=== PATIENT | female | born 1960 | race Caucasian/White ===

== ENCOUNTER 2018-09-15 20:52 | Emergency (ER) | payer BC ==
[2018-09-15 21:17] VITALS: BP 149/85
--- NOTE | 2018-09-15 21:18 | UC ---
Laceration HPI - HPI Summary HPI Summary: 57 female who sustained a laceration to her left index finger this morning. The gauze on it most of the day and then asked a friend if she needed stitches and he advised her to come here to have it evaluated. Last tetanus is unknown. - History Of Current Complaint Chief Complaint: UCWounds Stated Complaint: LEFT INDEX FINGER LACERATION Time Seen by Provider: 09/15/18 21:18 Hx Obtained From: Patient Laceration Location: Finger - Middle of left index finger. Mechanism Of Injury: Sharp Trauma - Cut her finger with a clean knife. Onset/Duration: Sudden Onset Severity: Mild Pain Intensity: 0 Aggravating Factors: Movement - Allergies/Home Medications Allergies/Adverse Reactions: Allergies Allergy/AdvReac Type Severity Reaction Status Date / Time No Known Allergies Allergy Verified 09/15/18 21:18 Home Medications: Home Medications traZODone TAB* [Desyrel TAB*] 50 mg PO BEDTIME PRN 09/15/18 [History Confirmed 09/15/18] PMH/Surg Hx/FS Hx/Imm Hx Previously Healthy: Yes - Surgical History Surgical History: Yes Surgery Procedure, Year, and Place: hysterectomy. back surgery - Family History Known Family History: Positive: Non-Contributory - Social History Alcohol Use: Occasionally Substance Use Type: None Smoking Status (MU): Never Smoked Tobacco - Immunization History Most Recent Tetanus Shot: within past 10 years Review of Systems All Other Systems Reviewed And Are Negative: Yes Skin: Positive: Other - 1.5 cm laceration to left index finger bleeding controlled. Motor: Positive: Negative Neurovascular: Positive: Negative Musculoskeletal: Positive: Negative Is Patient Immunocompromised?: No Physical Exam Triage Information Reviewed: Yes Appearance: Well-Appearing, No Pain Distress, Well-Nourished Vital Signs: Initial Vital Signs Temp 98 F 09/15/18 21:11 Pulse 77 09/15/18 21:11 Resp 18 09/15/18 21:11 BP 149/85 09/15/18 21:11 Pulse Ox 99 09/15/18 21:11 Vital Signs Reviewed: Yes Musculoskeletal: Positive: Strength Intact, ROM Intact - Peripheral pulses neuro sensation capillary refill, good finger strength with flexion and extension against resistance. Neurological Exam: Normal Neurological: Positive: Alert, Muscle Tone Normal Psychological Exam: Normal Skin: Positive: Other - 1.5 cm avulsion laceration to the midportion of her left index finger. Laceration Repair - Laceration Repair 1 Description: Linear Laceration Size After Repair: Length (cm) - Avulsion laceration, 1.5 cm Modified For Repair: No Type Injection: Local Anesthesia Used: 1.0% Lido Cleansing Completed Via Routine Prep: Yes Irrigation With Pressure Irrigation Device: No Closure Material: Sutures - Sutures placed numbered 3 Closure Method: Single Layer Suture Of: Skin Suture Type: Prolene Laceration Course/Dx - Course/Dx Course Of Treatment: Patient tolerated the suture procedure well, she was given Tdap sensation. Dry sterile bulky dressing was applied. - Diagnosis Provider Diagnosis: Laceration of left index finger Discharge - Sign-Out/Discharge Documenting (check all that apply): Patient Departure All imaging exams completed and their final reports reviewed: No Studies - Discharge Plan Condition: Fair Disposition: HOME Patient Education Materials: Care For Your Stitches (DC) Referrals: Cheko Braswell MD [Primary Care Provider] - Additional Instructions: Sutures out in 10 days, change dressing daily, follow-up with your primary care provider for suture removal or sooner if signs of infection such as hot, red, tender, red streaks, pus drainage. You were given a Tdap Immunization which is good for 8-10 years. - Billing Disposition and Condition Condition: FAIR Disposition: Home - Attestation Statements Provider Attestation: Per institutional requirements, I have reviewed the chart, however, I was not consulted specifically or made aware of this patient by the midlevel provider. I did not personally evaluate, interact with , or disposition this patient.
[2018-09-15] MEDS ORDERED: Lidocaine 1% MPF* 2 ML VIAL INJ ONE (21:26)
[2018-09-15] MEDS ORDERED: Tetan/Diph/Pertus SYR(Tdap)* 0.5 ML SYR(BOOSTRIX) use SYR IM ONE (21:28)
== END 2018-09-15 22:10 | disposition home or self-care (01) ==
LOC: UCCORT 20:52
DX: S61.211A Laceration without foreign body of left index finger without damage to nail, initial encounter (principal); W26.0XXA Contact with knife, initial encounter; Y92.9 Unspecified place or not applicable; Z23 Encounter for immunization
CPT/HCPCS: 12001; 90471; 90715; 99211; G0463

== ENCOUNTER 2018-11-14 18:18 | Emergency (ER) | payer BC ==
[2018-11-14 18:24] VITALS: BP 145/86
[2018-11-14] MEDS ORDERED: Neomyc/Polym/HC 1% OTIC SUSP* **OTIC LEFT EAR ONE (18:58)
[2018-11-14] MEDS ORDERED: Amoxicillin/Clavulanate TAB* 875 MG PO ONE (18:59)
--- NOTE | 2018-11-14 19:01 | UC ---
Ear Complaint HPI - HPI Summary HPI Summary: 58-year-old female 58-year-old female comes in with a chief complaint of left ear pain. Started with upper respiratory tract infection symptoms about 5 days ago. Left ear pain started about 3 days ago. Is quite severe she is having ringing in the ear. Decreased hearing in the left ear. The left mastoid is also tender to palpation. Minimal sore throat minimal rhinorrhea. She did take some acetaminophen and Sudafed which neither helped with the pain in the ear. No fevers measured. - History of Current Complaint Chief Complaint: UCEar Stated Complaint: EAR PAIN, RINGING IN EAR Time Seen by Provider: 11/14/18 18:40 Pain Intensity: 8 - Allergies/Home Medications Allergies/Adverse Reactions: Allergies Allergy/AdvReac Type Severity Reaction Status Date / Time No Known Allergies Allergy Verified 11/14/18 18:24 Home Medications: Home Medications Aspirin/Acetaminophen/Caffeine [Excedrin Extra Strength Caplet] 1 each PO PRN [History] Pseudoephedrine TAB* [Sudafed TAB*] 60 mg PO PRN 11/14/18 [History] PMH/Surg Hx/FS Hx/Imm Hx Previously Healthy: Yes - Surgical History Surgical History: Yes Surgery Procedure, Year, and Place: hysterectomy. back surgery - Family History Known Family History: Positive: Non-Contributory - Social History Alcohol Use: Occasionally Substance Use Type: None Smoking Status (MU): Never Smoked Tobacco - Immunization History Most Recent Tetanus Shot: within past 10 years Review of Systems All Other Systems Reviewed And Are Negative: Yes Constitutional: Positive: Negative Skin: Positive: Negative Eyes: Positive: Negative ENT: Positive: Sore Throat, Ear Ache, Nasal Discharge Respiratory: Positive: Negative Cardiovascular: Positive: Negative Gastrointestinal: Positive: Negative Motor: Positive: Negative Neurovascular: Positive: Negative Musculoskeletal: Positive: Negative Neurological: Positive: Negative Psychological: Positive: Negative Is Patient Immunocompromised?: No Physical Exam Triage Information Reviewed: Yes Appearance: Well-Appearing, Well-Nourished, Pain Distress - MILD Vital Signs: Initial Vital Signs Temp 97.6 F 11/14/18 18:20 Pulse 94 11/14/18 18:20 Resp 16 11/14/18 18:20 BP 145/86 11/14/18 18:20 Pulse Ox 99 11/14/18 18:20 Vital Signs Reviewed: Yes Eye Exam: Normal Eyes: Positive: Conjunctiva Clear ENT: Positive: Pharyngeal erythema, TM bulging - LEFT, TM red - LEFT, Uvula midline, Other - LEFT EAR CANAL MILDLY SWOLLEN. Negative: Muffled voice, Hoarse voice Neck: Positive: Supple Respiratory: Positive: Lungs clear, Normal breath sounds, No respiratory distress Cardiovascular: Positive: RRR Musculoskeletal Exam: Normal Musculoskeletal: Positive: Strength Intact, ROM Intact Neurological Exam: Normal Neurological: Positive: Alert, Muscle Tone Normal Psychological Exam: Normal Psychological: Positive: Normal Response To Family, Age Appropriate Behavior Skin Exam: Normal Ear Complaint Course/Dx - Differential Dx/Diagnosis Provider Diagnosis: Left otitis media, Left otitis externa, Tinnitus, left ear Discharge - Sign-Out/Discharge Documenting (check all that apply): Patient Departure All imaging exams completed and their final reports reviewed: No Studies - Discharge Plan Condition: Stable Disposition: HOME Prescriptions: Amoxicillin/Clavulanate TAB* [Augmentin TAB 875*] 875 mg PO BID #18 tab Patient Education Materials: Otitis Externa (ED), Ear Infection (ED), Tinnitus (ED) Referrals: Cheko Braswell MD [Primary Care Provider] - Additional Instructions: FOLLOW UP WITH YOUR DOCTOR IF NOT COMPLETELY IMPROVED. GET RECHECKED SOONER IF YOUR CONDITION WORSENS OR ANY QUESTIONS OR CONCERNS. - Billing Disposition and Condition Condition: STABLE Disposition: Home
== END 2018-11-14 19:20 | disposition home or self-care (01) ==
LOC: UCEAST 18:18
DX: H66.92 Otitis media, unspecified, left ear (principal); H60.92 Unspecified otitis externa, left ear; H93.12 Tinnitus, left ear; Z79.82 Long term (current) use of aspirin
CPT/HCPCS: 99213; A9270-GY; G0463

== ENCOUNTER 2019-02-27 17:39 | Emergency (ER) | payer BC ==
[2019-02-27 17:55] VITALS: BP 146/81
--- NOTE | 2019-02-27 18:11 | UC ---
Ear Complaint HPI - HPI Summary HPI Summary: C/O bubbling, popping/ crackling sound in the right ear. No fever or coughing. H /O allergies with sinus congestion at times. Unable to yawn and pop her ears. - History of Current Complaint Chief Complaint: UCEar Stated Complaint: RIGHT EAR ISSUE Time Seen by Provider: 02/27/19 17:59 Hx Obtained From: Patient Onset/Duration: Sudden Onset, Lasting Days - today Severity Initially: Mild Severity Currently: Mild Pain Intensity: 0 Associated Signs/Symptoms: Positive: Hearing Loss - when it is popping/ crackling Related History: Seasonal Allergies - Allergies/Home Medications Allergies/Adverse Reactions: Allergies Allergy/AdvReac Type Severity Reaction Status Date / Time No Known Allergies Allergy Verified 02/27/19 17:56 PMH/Surg Hx/FS Hx/Imm Hx - Additional Past Medical History Additional PMH: Myotonic dystrophy Other Cancer History: H/O aplastic anemia - Surgical History Surgical History: Yes Surgery Procedure, Year, and Place: hysterectomy. back surgery - Family History Known Family History: Positive: Non-Contributory Negative: Cardiac Disease - Social History Occupation: Employed Full-time Lives: With Family Alcohol Use: Occasionally Substance Use Type: None Smoking Status (MU): Never Smoked Tobacco - Immunization History Most Recent Tetanus Shot: within past 10 years Review of Systems All Other Systems Reviewed And Are Negative: Yes ENT: Positive: Sinus Congestion Is Patient Immunocompromised?: No Physical Exam Triage Information Reviewed: Yes Appearance: Well-Appearing, No Pain Distress, Well-Nourished Vital Signs: Initial Vital Signs Temp 99.0 F 02/27/19 17:53 Pulse 82 02/27/19 17:53 Resp 16 02/27/19 17:53 BP 146/81 02/27/19 17:53 Pulse Ox 99 02/27/19 17:53 Vital Signs Reviewed: Yes Eyes: Positive: Conjunctiva Clear ENT: Positive: Nasal congestion - with allergic changes.. Negative: TMs normal - Left TM normal. Right TM with superior perforation. Ear Complaint Course/Dx - Differential Dx/Diagnosis Differential Diagnosis/HQI/PQRI: Cerumen Impaction, Otitis Media, Perforated TM , URI Provider Diagnosis: Perforated right tympanic membrane on examination, Allergic rhinitis, Unspecified eustachian tube disorder, bilateral Discharge ED - Sign-Out/Discharge Documenting (check all that apply): Patient Departure All imaging exams completed and their final reports reviewed: No Studies - Discharge Plan Condition: Stable Disposition: HOME Prescriptions: Fluticasone NASAL SPRAY 50MCG* [Flonase NASAL SPRAY 50MCG*] 2 spray BOTH NARES DAILY #1 btl Patient Education Materials: Allergic Rhinitis (ED), Ruptured Eardrum (ED) Referrals: Cheko Braswell MD [Primary Care Provider] - Gurmeet Funez MD [Medical Doctor] - 3 Days (Regarding perforated ear drum) Additional Instructions: NEILMED SINUS RINSE: CHECK OUT AT [employer] Saline nasal wash helps with mucous, allergies and congestion. It can be used up to twice a day or only as needed. Use lukewarm tap water. It does not have to be sterilized or distilled water. Do 1/3 on each side and snort out of both nostrils. Repeat the process with 1/6 of the bottle on each side with snorting in between to finish the solution in the bottle - Billing Disposition and Condition Condition: STABLE Disposition: Home
== END 2019-02-27 18:30 | disposition home or self-care (01) ==
LOC: UCCORT 17:39
DX: H72.91 Unspecified perforation of tympanic membrane, right ear (principal); J30.9 Allergic rhinitis, unspecified; H69.93 Unspecified Eustachian tube disorder, bilateral; G71.11 Myotonic muscular dystrophy
CPT/HCPCS: 99212; G0463

== ENCOUNTER 2019-08-11 05:41 | Emergency (ER) | payer BC ==
[2019-08-11] MEDS ORDERED: Aspirin 81 mg CHEW TAB* 81 MG TAB.CHEW PO ONE (06:03)
--- NOTE | 2019-08-11 06:03 | ED ---
HPI Chest Pain - HPI Summary HPI Summary: Pt. is a 58 y.o female who presents to the ER for chest pain that woke her about around 0300. Pt. states pain is located to lower chest and radiates into back. She notes associated shortness of breath. Denies N/V, diaphoresis, or syncope. Pt. notes ankle fracture 4 weeks ago without sx. Denies leg swelling or redness. Denies past hx of HTN, DM, HLD, or strong family hx of CAD. Former smoker. Hx of myotonic muscular dystrophy. Sxs are moderate in severity. No current modifying factors. Pt. notes a lot of stressors as her is currently in the ICU. - History of Current Complaint Chief Complaint: EDChestPainROMI Time Seen by Provider: 08/11/19 06:01 Hx Obtained From: Patient Pain Intensity: 7 - Allergy/Home Medications Allergies/Adverse Reactions: Allergies Allergy/AdvReac Type Severity Reaction Status Date / Time No Known Allergies Allergy Verified 02/27/19 17:56 Home Medications: Home Medications Ascorbic Acid TAB* [Vitamin C TAB*] 500 mg PO DAILY 10/25/16 [History Confirmed 08/11/19] traZODone TAB* [Desyrel TAB*] 50 mg PO BEDTIME PRN 09/15/18 [History Confirmed 08/11/19] Aspirin/Acetaminophen/Caffeine [Excedrin Extra Strength Caplet] 1 each PO DAILY 11/14/18 [History Confirmed 08/11/19] Fluticasone NASAL SPRAY 50MCG* [Flonase NASAL SPRAY 50MCG*] 2 spray BOTH NARES DAILY #1 btl 02/27/19 [Rx Confirmed 08/11/19] Famotidine TAB 40 MG(NF) [Pepcid TAB 40 MG(NF)] 40 mg PO DAILY #30 tab 08/11/19 [Rx] PMH/Surg Hx/FS Hx/Imm Hx Previously Healthy: Yes Endocrine/Hematology History: Reports: Hx Anemia - aplastic Respiratory History: Reports: Other Respiratory Problems/Disorders - MYOTINIC MUSCULAR DYSTROPHY - Cancer History Cancer Type, Location and Year: aplastic anemia - Surgical History Surgery Procedure, Year, and Place: hysterectomy. back surgery Infectious Disease History: No Infectious Disease History: Denies: History Other Infectious Disease, Traveled Outside the [place] in Last 30 Days - Family History Known Family History: Negative: Cardiac Disease - Social History Occupation: Employed Full-time Lives: With Family Alcohol Use: Occasionally Substance Use Type: Reports: None Smoking Status (MU): Never Smoked Tobacco Review of Systems Constitutional: Negative ENT: Negative Positive: Chest Pain Positive: Shortness Of Breath Positive: Abdominal Pain. Negative: Vomiting, Diarrhea, Nausea Genitourinary: Negative Neurological/Mental Status: Negative All Other Systems Reviewed And Are Negative: Yes Physical Exam Triage Information Reviewed: Yes Vital Signs On Initial Exam: Initial Vitals Temp Pulse Resp BP Pulse Ox 97.5 F 83 22 151/91 99 08/11/19 05:52 08/11/19 05:52 08/11/19 05:52 08/11/19 05:52 08/11/19 05:52 Vital Signs Reviewed: Yes Appearance: Positive: Pain Distress - Pt. sitting up in bed, appears in pain but nontoxic. Skin: Positive: Warm, Dry Head/Face: Positive: Normal Head/Face Inspection Eyes: Positive: Normal, EOMI Neck: Positive: Supple Respiratory/Lung Sounds: Positive: Clear to Auscultation, Breath Sounds Present. Negative: Rales, Rhonchi, Wheezes Cardiovascular: Positive: Normal, RRR Abdomen Description: Positive: Other: - Abd. is soft with epigastric tenderness. Neurological: Positive: Normal, CN Intact II-III Psychiatric: Positive: Affect/Mood Appropriate Procedures - Sedation Patient Received Moderate/Deep Sedation with Procedure: No Diagnostics - Vital Signs Vital Signs Temp Pulse Resp BP Pulse Ox 08/11/19 05:52 97.5 F 83 22 151/91 99 - Laboratory Result Diagrams: 08/11/19 06:05 08/11/19 06:05 Lab Statement: Any lab studies that have been ordered have been reviewed, and results considered in the medical decision making process. Chest Pain Course/Dx - Course Course Of Treatment: Pt. with epigastric pain that radiates into chest and back. BP elevated. Pt. appears fairly uncomfortable. ASA given. ECG done at 0548 shows a sinus rhythm of 73bpm, normal axis, LVH, no STEMI. Case reviewed with Dr. José. Given recent fx/immobility, chest pain and SOB will obtain CTA to r/o PE. Labs unremarkable including troponin x 2 negative. HEART score 3 which places pt. at low risk. 0830: On re-exam pt. feeling better but still has mild pain located to epigastrium. Will give GI cocktail. Pending second troponin. Pt. feeling better and pain minimal at this time and locates it to her stomach. WIll tx with pepcid. Pt. comfortable with DC home. To call pcp today for close f.u with return to ER if sxs change or worsen. - Chest Pain Differential Diagnosis/HQI/PQRI: Acute VA, Angina, Chest Wall, GI Disease, Lower Respiratory Infection, Pulmonary Embolism - Diagnoses Provider Diagnoses: Atypical chest pain, Epigastric pain Discharge ED - Sign-Out/Discharge Documenting (check all that apply): Patient Departure - Discharge Plan Condition: Improved Disposition: HOME Prescriptions: Famotidine TAB 40 MG(NF) [Pepcid TAB 40 MG(NF)] 40 mg PO DAILY #30 tab Patient Education Materials: Chest Pain (ED), Hypertension (ED), Epigastric Pain (ED) Referrals: Cheko Braswell MD [Primary Care Provider] - Additional Instructions: Please see your PCP in 2-3 days for recheck Medication as directed Return to ER if symptoms change or worsen - Billing Disposition and Condition Condition: IMPROVED Disposition: Home - Attestation Statements Provider Attestation: I was available for consult. This patient was seen by the JAMES. The patient was not presented to, seen by, or examined by me. Enrique Castelan MD
[2019-08-11] MEDS ORDERED: Ondansetron INJ* 2 MG/ML VIAL IV ONE (06:10)
[2019-08-11] MEDS ORDERED: Morphine 4 MG/ML VIAL (1 ml) 4 MG/ML VIAL IV ONE (06:10)
[2019-08-11] MEDS ORDERED: NS 0.9% 1000 ML** 1,000 ML IV ONE (06:10)
[2019-08-11 06:29] LABS: ABS Eosinophils 0.1 10^3/ul (0-0.6); ABS Monocytes 0.4 10^3/ul (0-0.8); ABS Neutrophils 3.9 10^3/ul (1.5-7.7); Eosinophil % 1.8 %; Hematocrit 42 % (35-47); Hemoglobin 14.2 g/dL (12.0-16.0); Lymphocyte % 18.4 %; Mean Corpuscular HGB Conc 34 g/dL (31-36); Mean Corpuscular Hemoglobin 29 pg (27-31); Mean Corpuscular Volume 85 fL (80-97); Mean Platelet Volume 8.2 fL (7.4-10.4); Platelet Count 235 10^3/uL (150-450); Red Blood Count 4.95 10^6 /uL (3.70-4.87); Red Cell Distribution Width 13 % (10-15); White Blood Count 5.5 10^3/uL (3.5-10.8)
[2019-08-11 06:51] LABS: ALT 26 U/L (7-52); AST 20 U/L (13-39); Albumin 4.2 g/dL (3.2-5.2); Albumin/Globulin Ratio 1.9 (1-3); Alkaline Phosphatase 70 U/L (34-104); Anion Gap 6 mmol/L (2-11); BUN/Creatinine Ratio 17.9 (8-20); Blood Urea Nitrogen 15 mg/dL (6-24); CO2 Carbon Dioxide 26 mmol/L (22-32); Calcium 9.4 mg/dL (8.6-10.3); Chloride 108 mmol/L (101-111); EGFR African American 83.7 (>60); EGFR Non-African American 69.2 (>60); Globulin 2.2 g/dL (2-4); Glucose 118 mg/dL (70-100); Potassium 3.8 mmol/L (3.5-5.0); Sodium 140 mmol/L (135-145); Total Protein 6.4 g/dL (6.4-8.9)
[2019-08-11] MEDS ORDERED: Iohexol 350* (CONTRAST) 500 ML MDV IV ONE (06:54)
--- OUTSIDE RECORDS SUMMARY | 2019-08-11 07:25 | XMS REPORT | Continuity of Care Document ---
:1960 External Reference #:[id number] Author Name Vianca Arreaga NP (transmitted by agent of provider Nae Roth) Address [address], [address] [place] [address] Care Team Providers Name Role Phone Cheko Braswell MD - Internal Care Team Information Associate Creative Director Medicine Problems Active Problems Provider Date Temporomandibular joint disorder Rodolfo Tena M.D. Onset: 12/18/2015 Muscular dystrophy Harika Hutchinson M.D. Onset: 03/26/2016 Muscle weakness Khris Cross M.D. Onset: 01/01/2018 Female stress incontinence Khris Cross M.D. Onset: 03/11/2019 Palpitations Khris Cross M.D. Onset: 03/11/2019 Congenital myotonic dystrophy Khris Cross M.D. Onset: 03/11/2019 Social History Type Date Description Comments Sex Unknown Tobacco Use Start: Unknown Never Smoked Cigarettes Tobacco Use Start: Unknown Never Smoked Cigars Tobacco Use Start: Unknown Never Smoked A Pipe Smokeless Tobacco Never Used Smokeless Tobacco ETOH Use Occasionally consumes alcohol Tobacco Use Start: Unknown Patient has never smoked Recreational Drug Use Denies Drug Use Smoking Status Reviewed: 06/18/19 Patient has never smoked Exercise Type/Frequency Exercises sporadically Allergies, Adverse Reactions, Alerts Description No Known Drug Allergies Medications Active Medications SIG Qnty Indications Ordering Provider Date Proair HFA 1 puff every 6 17gm Elda Sánchez MD 03/12/2018 108(90Base) hours as needed mcg/Act Aerosol Womens One Daily 1 by mouth every Harika Hutchinson, 03/26/2016 Tablets day M.Cassie Vitamin C 1 by mouth every Unknown 1000mg Tablets day Trazodone HCL Take 1 Tablet By Unknown 50mg Mouth Once Daily Tablets For 90 Days Immunizations Description No Information Available Vital Signs Date Vital Result Comment 06/18/2019 2:59pm Height 66 inches 5'6" Weight 160.00 lb Heart Rate 85 /min BP Systolic 128 mmHg BP Diastolic 78 mmHg O2 % BldC Oximetry 99 % BMI (Body Mass Index) 25.8 kg/m2 03/11/2019 3:59pm Height 66 inches 5'6" Weight 160.00 lb Heart Rate 78 /min BP Systolic 120 mmHg BP Diastolic 86 mmHg BMI (Body Mass Index) 25.8 kg/m2 Results Description No Information Available Procedures Description No Information Available Medical Devices Description No Information Available Encounters Type Date Location Provider Dx Diagnosis Office Visit 06/18/2019 [facility] G47.9 Sleep disorder, 3:00p [facility] unspecified [facility] R53.83 Other fatigue G71.11 Myotonic muscular dystrophy J45.909 Unspecified asthma, uncomplicated Office Visit 03/11/2019 3:45p [place] [facility] dystrophy R00.2 Palpitations M62.81 Muscle weakness (generalized) N39.3 Stress incontinence (female) (male) Assessments Date Code Description Provider 06/18/2019 G47.9 Sleep disorder, unspecified Vianca Arreaga NP 06/18/2019 R53.83 Other fatigue Vianca Arreaga NP 06/18/2019 G71.11 Myotonic muscular dystrophy Vianca Arreaga NP 06/18/2019 J45.909 Unspecified asthma, uncomplicated Vianca Arreaga NP 03/11/2019 G71.11 Myotonic muscular dystrophy Khris Cross M.D. 03/11/2019 R00.2 Palpitations Khris Cross M.D. 03/11/2019 M62.81 Muscle weakness (generalized) Khris Cross M.D. 03/11/2019 N39.3 Stress incontinence (female) (male) Khris Cross M.D. Plan of Treatment Future Appointment(s):08/13/2019 10:30 am - Vianca Arreaga NP at [facility]03/10/2020 3:45 pm - Khris Cross M.D. at [facility]06/18/2019 - Vianca Arreaga NPG47.9 Sleep disorder, unspecifiedFollow up:2 bntxuwJ31.83 Other [id number] Myotonic muscular [id number] Unspecified asthma, uncomplicated Functional Status Description No Information Available Mental Status Description No Information Available Referrals Refer to Reason for Referral Status Appt Date Bill Wooten MD Created [address] [facility] [address] [place] [id number] [phone]
--- OUTSIDE RECORDS SUMMARY | 2019-08-11 07:25 | XMS REPORT | Continuity of Care Document ---
:1960 External Reference #:[id number] Author Name John Mooney MD (transmitted by agent of provider Vianca Christianson) Address [address] [place] [id number] Care Team Providers Name Role Phone Cheko Braswell MD - Internal Care Team Information Wound Specialist Medicine Problems Active Problems Provider Date Temporomandibular [...] Use Denies Drug Use Smoking Status Reviewed: 07/12/19 Patient has never smoked Exercise Type/Frequency Exercises sporadically Allergies, Adverse Reactions, Alerts Description No Known Drug Allergies Medications Active Medications SIG Qnty Indications Ordering Provider Date Proair HFA 1 puff every 6 17gm Elda Sánchez MD 03/12/2018 108(90Base) hours as needed mcg/Act Aerosol Womens One Daily 1 by mouth every Harika Hutchinson, 03/26/2016 Tablets day M.D. Vitamin C 1 by mouth every Unknown 1000mg Tablets day Trazodone HCL Take 1 Tablet By Unknown 50mg Mouth Once Daily Tablets For 90 Days Immunizations Description No Information Available Vital Signs Date Vital Result Comment 07/12/2019 8:15am Height 66 inches 5'6" Weight 163.75 lb Heart Rate 74 /min BP Systolic 116 mmHg BP Diastolic 70 mmHg Respiratory Rate 12 /min Body Temperature 97.3 F Pain Level 2 BMI (Body Mass Index) 26.4 kg/m2 06/18/2019 2:59pm Height 66 inches 5'6" Weight 160.00 lb Heart Rate 85 /min BP Systolic 128 mmHg BP Diastolic 78 mmHg O2 % BldC Oximetry 99 % BMI (Body Mass Index) 25.8 kg/m2 Results Description No Information Available Procedures Description No Information Available Medical Devices Description No Information Available Encounters Type Date Location Provider Dx Diagnosis Office Visit 07/12/2019 [facility] John Mooney, S82.64xA Nondisp fx of 8:00a at [place] lateral malleolus of right fibula, init Office Visit 06/18/2019 [facility] G47.9 Sleep disorder, 3:00p [facility] unspecified Junior Systems Engineer R53.83 Other fatigue G47.00 Insomnia, unspecified G71.11 Myotonic muscular dystrophy J45.909 Unspecified asthma, uncomplicated Office Visit 03/11/2019 3:45p Neil Cross G71.11 Myotonic [facility] R00.2 Palpitations M62.81 Muscle weakness (generalized) N39.3 Stress incontinence (female) (male) Assessments Date Code Description Provider 07/12/2019 S82.64xA Nondisplaced fracture of lateral malleolus John Mooney MD of right fibula, initial encounter for closed fracture 06/18/2019 G47.9 Sleep disorder, unspecified Vianca Arreaga NP 06/18/2019 R53.83 Other fatigue Vianca Arreaga NP 06/18/2019 G47.00 Insomnia, unspecified Vianca Arreaga NP 06/18/2019 G71.11 Myotonic muscular dystrophy Vianca Arreaga NP 06/18/2019 J45.909 Unspecified asthma, uncomplicated Vianca Arreaga NP 03/11/2019 G71.11 Myotonic muscular dystrophy Khris Cross M.D. 03/11/2019 R00.2 Palpitations Khris Cross M.D. 03/11/2019 M62.81 Muscle weakness (generalized) Khris Cross M.D. 03/11/2019 N39.3 Stress incontinence (female) (male) Khris Cross M.D. Plan of Treatment Future Appointment(s):08/10/2019 8:00 am - John Mooney MD at [facility] at [facility]408/13/2019 10:30 am - Vianca Arreaga NP at [facility]03/10/2020 3:45 pm - Khris Cross M.D. at [facility]07/12/2019 - John Mooney, MDS82.64xA Nondisplaced fracture of lateral malleolus of right fibula, initial encounter for closed fractureFollow up:4 weeks Functional Status Description No Information Available Mental Status Description No Information Available Referrals Refer to Reason for Referral Status Appt Date Bill Wooten MD Created [address] [place] [address] [place] [address] [phone]
[2019-08-11] MEDS ORDERED: Al Hydrox/Mg Hydrox/Simet LIQ* 30 ML UDC PO ONE (08:33)
[2019-08-11] MEDS ORDERED: Lidocaine 2% VISCOUS* 15 ML UDC PO ONE (08:33)
[2019-08-11 10:09] VITALS: BP 159/86
== END 2019-08-11 10:08 | disposition home or self-care (01) ==
LOC: ED 05:41
DX: R07.89 Other chest pain (principal); R10.13 Epigastric pain; G71.11 Myotonic muscular dystrophy
CPT/HCPCS: 36415; 71045; 71275; 80053; 83605; 83690; 83735; 84484; 85025; 85610; 85730; 93005; 96361; 96374; 96375; 99284; A9270-GY; J2270; J2405; Q9967

== ENCOUNTER 2022-04-27 20:47 | Observation (INO) ==
[2022-04-27] MEDS ORDERED: Ondansetron 4 mg VIAL 2 MG/ML 2 ml VIAL IV ONE (21:12)
[2022-04-27] MEDS ORDERED: Lactated Ringers 1000 ml BAG 1,000 ML IV ONE (21:12)
[2022-04-27] MEDS ORDERED: Morphine 4 MG/ML VIAL (1 ml) IV ONE ×2 (21:12→22:09)
[2022-04-27 21:54] LABS: ABS Eosinophils 0.1 10^3/ul (0-0.6); ABS Lymphocytes 1.6 10^3/ul (1.0-4.8); ABS Monocytes 0.7 10^3/ul (0-0.8); ABS Neutrophils 6.5 10^3/ul (1.5-7.7); Hematocrit 43 % (35-47); Hemoglobin 14.1 g/dL (12.0-16.0); Lymphocyte % 18.1 %; Mean Corpuscular HGB Conc 33 g/dL (31-36); Mean Corpuscular Hemoglobin 29 pg (27-31); Mean Corpuscular Volume 87 fL (80-97); Mean Platelet Volume 8.1 fL (7.4-10.4); Nucleated Red Blood Cells % 0.1; Platelet Count 263 10^3/uL (150-450); Red Blood Count 4.89 10^6 /uL (3.70-4.87); Red Cell Distribution Width 13 % (10-15); White Blood Count 8.9 10^3/uL (3.5-10.8)
[2022-04-27 22:16] LABS: Albumin 4.6 g/dL (3.2-5.2); Calcium 9.9 mg/dL (8.6-10.3); Globulin 2.3 g/dL (2-4); Potassium 4.1 mmol/L (3.5-5.0); Total Bilirubin 0.8 mg/dL (0.2-1.0); Total Protein 6.9 g/dL (6.4-8.9); eGFR CKD-EPI 61.8 (>60)
[2022-04-27] MEDS ORDERED: Iohexol 350 (CONTRAST) 500 ML MDV IV ONE (22:28)
[2022-04-27] MEDS ORDERED: HYDROmorphone 1 MG/1 ML SYRINGE IV ONE (23:55)
[2022-04-28 02:06] LABS: Urine Appearance Clear; Urine Bilirubin Negative (Negative); Urine Blood 1+ (Negative); Urine Color Yellow; Urine Glucose Negative (Negative); Urine Ketones 1+ (Negative); Urine Nitrite Negative (Negative); Urine Protein Negative (Negative); Urine Specific Gravity 1.044 (1.002-1.030); Urine Urobilinogen Negative (Negative)
[2022-04-28] MEDS: Ondansetron ODT 4 mg TAB 4 MG TAB PO ONE ×2 (02:38→03:08)
[2022-04-28] MEDS: HYDROcodone/Acetamin 10/325 TAB (NF) PO ONE ×2 (02:38→02:47)
[2022-04-28 02:42] LABS: Urine Bacteria Absent (Absent); Urine Red Blood Cell 2+(6-10/hpf) (Absent); Urine Squamous Epithelial Cell Present (Absent); Urine White Blood Cell Trace(0-5/hpf) (Absent)
[2022-04-28] MEDS ORDERED: HYDROmorphone 0.5 MG/0.5 ML SYRINGE IV ONE (02:44)
[2022-04-28] MEDS ORDERED: Ondansetron 4 mg VIAL 2 MG/ML 2 ml VIAL IV ONE (02:44)
[2022-04-28] MEDS: Ondansetron 4 mg VIAL 2 MG/ML 2 ml VIAL IV PRN ×2 (06:26→11:00)
[2022-04-28] MEDS ORDERED: HYDROmorphone 0.5 MG/0.5 ML SYRINGE IV PRN (08:00)
[2022-04-28] MEDS ORDERED: Morphine 2 MG/ML SYRINGE IV PRN (11:36)
[2022-04-28] MEDS ORDERED: NS 0.9% 1000 ml BAG 1,000 ML IV ONE (11:54)
[2022-04-28] MEDS: Morphine 2 MG/ML SYRINGE IV PRN ×2 (12:12→16:01)
[2022-04-28] MEDS ORDERED: Metoclopramide 5 MG/ML VIAL (10 mg) IV SLOW PU ONE (12:15)
[2022-04-29 06:52] LABS: Calcium 9.1 mg/dL (8.6-10.3); Potassium 4.1 mmol/L (3.5-5.0); eGFR CKD-EPI 104.3 (>60)
[2022-04-29 09:53] VITALS: BP 121/57
== END 2022-04-29 14:30 | disposition home or self-care (01) ==
LOC: EDHOLD 20:47 → ED 20:47 → EDHOLD 04-28 04:51 → MCHPEDS 04-28 05:58
PROVIDERS: ADMIT Internal Medicine; ATTEND Internal Medicine